=== PATIENT | male | born 1960 | race Caucasian/White ===

== ENCOUNTER 2017-04-28 16:55 | Observation (INO) ==
[2017-04-28] MEDS ORDERED: ASPIRIN PO STA (17:30)
[2017-04-28 17:40] LABS: MANUAL DIFF NEEDED? NO
[2017-04-28 17:45] LABS: BASO% 0.6 % (0.0-0.8); EOS# 0.12 X1000 (0.0-0.7); EOS% 1.2 % (0.0-10.0); HEMATOCRIT 44.2 % (42.0-52.0); HEMOGLOBIN 15.2 g/dL (14.0-18.0); LYMPH# 2.65 X1000 (1.2-3.4); LYMPH% 26.5 % (20.5-51.1); MCH 31.7 PG (27-31); MCHC 34.4 g/dL (33-37); MCV 92.1 FL (81-99); MONO# 0.65 X1000 (0.11-0.59); MONO% 6.5 % (1.7-9.3); MPV 10.7 FL (7.4-10.4); NEUT% 65.2 % (42.2-75.2); PLT 200 X1000 (130-400)
[2017-04-28 17:54] LABS: INR 1.03; PROTIME 10.8 Seconds (9.2-11.7); PTT 28.2 Seconds (22.0-36.0)
[2017-04-28 17:58] LABS: AGAP 13; ALBUMIN 3.8 g/dL (3.5-5.0); ALKALINE PHOSPHATASE 57 U/L (32-122); BUN 10 mg/dL (8-22); CALCIUM 8.4 mg/dL (8.8-10.2); CHLORIDE 103 mmol/L (98-107); COSMO 282; GOT 16 U/L (10-34); GPT 12 U/L (10-44); MAGNESIUM 1.6 mg/dL (1.5-2.7); POTASSIUM 3.2 mmol/L (3.5-5.1); SODIUM 141 mmol/L (136-145); TCO2 25 mmol/L (25-35); TOTAL PROTEIN 6.4 g/dL (6.3-8.3)
[2017-04-28 18:04] LABS: CK PROFILE 319 U/L (24-204)
--- NOTE | 2017-04-28 18:04 | Diag Imaging Result Doc PS360 ---
EXAM: CHEST-2 VIEWS HISTORY: CP TECHNIQUE: PA and lateral chest, four views COMMENT: There is no evidence of acute cardiac or pulmonary disease. There is a granuloma present in the superior segment of the left lower lobe. IMPRESSION: No acute disease. Electronically signed by Ryan Mercado 04/28/2017 6:02 PM
[2017-04-28 18:20] LABS: CK INDEX 2.8 (0.0-2.5); CK-MB 9.04 ng/mL (0.0-5.0)
--- NOTE | 2017-04-28 19:46 | PROVIDER DOCUMENTATION ---
This chart was entered by Annette Lopez Scribe, acting as scribe for Marcos Pereyra MD. HPI-Chest Pain - General Chief Complaint: Chest Pain Stated Complaint: cp Time Seen by Provider: 04/28/17 19:13 Source: patient Allergies/Adverse Reactions: Patient Allergies Allergy/AdvReac Type Severity Reaction Status Date / Time No Known Allergies Allergy Verified 04/28/17 17:30 Home Medications: Home Medication List Medication Instructions Recorded Confirmed Last Taken Type Amlodipine Besylate [Amlodipine 1 tab PO DAILY 04/28/17 04/28/17 04/28/17 History Besylate] Celecoxib [Celecoxib] 1 cap PO DAILY 04/28/17 04/28/17 04/28/17 History Clopidogrel Bisulfate [Clopidogrel] 1 tab PO DAILY 04/28/17 04/28/17 04/28/17 History Hydrocodone/Acetaminophen [Arthur 1 each PO DAILY 04/28/17 04/28/17 04/28/17 History 10-325 Tablet] Metoprolol Succinate [Metoprolol 1 tab PO DAILY 04/28/17 04/28/17 04/28/17 History Succinate] Pantoprazole Sodium [Pantoprazole 1 tab PO DAILY 04/28/17 04/28/17 04/28/17 History Sodium] Prednisone [Prednisone] 1 tab PO DAILY 04/28/17 04/28/17 04/28/17 History Tamsulosin HCl [Tamsulosin HCl] 1 tab PO DAILY 04/28/17 04/28/17 04/28/17 History Triamcinolone Acetonide 1 applicatn TOP DAILY 04/28/17 04/28/17 04/28/17 History [Triamcinolone Acetonide] - History of Present Illness-CP Nature of Presenting Problem: Pt is a 57 year old male who came to the ED with a cc of having sharp chest pain and right arm pain. The pt reports that he has been having chest pain for a week but today was the worst it has been. Pt reports that he smokes over a pack a day. Review of Systems - Adult - REVIEW OF SYSTEMS - ADULT Constitutional: denies: chills, fever Eyes: reports: no symptoms reported Ears, Nose, Mouth & Throat: reports: no symptoms reported Cardiovascular: reports: chest pain. denies: heart murmur, orthopnea Respiratory: reports: shortness of breath. denies: cough, hemoptysis, wheezing Gastrointestinal: denies: diarrhea, nausea, vomiting Genitourinary: reports: no symptoms reported Musculoskeletal: reports: other (right arm pain). denies: frequent leg cramps, joint swelling Integumentary: reports: no symptoms reported Neurological: reports: no symptoms reported Psychiatric: reports: no symptoms reported Endocrine: reports: no symptoms reported Hematologic/Lymphatic: reports: no symptoms reported Allergic/Immunologic: reports: no symptoms reported All Other Systems: Reviewed and Negative Past History - Adult - PAST MEDICAL HISTORY-ADULT Review of Records: reports: Nursing Assessment Review, Medications Reviewed Cardiovascular: reports: cardiac disease, HTN Respiratory: reports: COPD Gastrointestinal: reports: denies history Genitourinary: reports: denies history Musculoskeletal: reports: denies history Neurological: denies: cognitive dysfunction Endocrine/Immune: reports: denies history - IMMUNIZATION STATUS Childhood Immunizations: See Nurse Assessment Flu Vaccine: See Nurse Assessment - FAMILY HISTORY Family History: cancer - SOCIAL HISTORY Smoking: cigarettes, greater than 1 pack/day Provider spent 3-5 mins advising pt. on dangers of tobacco.: Discussed manners to quit use, and f/u contacts for add'l counseling. Physical Exam-General - PHYSICAL EXAM-ADULT Initial Vital Signs Reviewed: Yes - CONSTITUTIONAL General Appearance: alert, no apparent distress - EYES Eyes: PERRL/EOMI, pink conjunctivae - HEAD, EARS, NOSE, MOUTH & THROAT HENMT: normocephalic/atraumatic, moist mucous membranes, normal ENT inspection - NECK Neck: supple, normal inspection - RESPIRATORY Respiratory: chest non-tender, normal breath sounds, wheezing - CARDIOVASCULAR Cardiovascular: normal peripheral pulses, regular rate, rhythm, no edema - GASTROINTESTINAL (ABDOMEN) Abdominal Exam: normal bowel sounds, non tender, soft - LYMPHATIC Lymphatic: no adenopathy - MUSCULOSKELETAL Back Exam: normal inspection, no CVA tenderness, no vertebral tenderness Extremity: normal range of motion, non-tender - SKIN Integumentary: normal color, normal turgor, warm/dry - NEUROLOGIC Neurologic: grossly normal, no motor/sensory deficits - PSYCHIATRIC Psych/Mental Status: normal mood/affect, normal thought content, normal thought process, oriented x 3 Progress - PLAN OF CARE/RESULTS Progress/Plan/Lab Results: Vital Signs - 8 hr 04/28/17 17:05 04/28/17 19:21 Temperature 98.5 F Pulse Rate 67 72 Respiratory Rate 18 18 Blood Pressure 129/75 130/84 O2 Sat by Pulse Oximetry 100 98 Laboratory Results - last 24 hr 04/28/17 04/28/17 04/28/17 17:24 17:24 17:24 WBC 10.01 RBC 4.80 Hgb 15.2 Hct 44.2 MCV 92.1 MCH 31.7 H MCHC 34.4 RDW Std Deviation 13.4 Plt Count 200 MPV 10.7 H Immature Gran % (Auto) 0.0 Neut % (Auto) 65.2 Lymph % (Auto) 26.5 [place] % (Auto) 6.5 Eos % (Auto) 1.2 Baso % (Auto) 0.6 Immature Gran # (Auto) 0.00 Neut # (Auto) 6.53 H Lymph # (Auto) 2.65 [place] # (Auto) 0.65 H Eos # (Auto) 0.12 Baso # (Auto) 0.06 PT INR PTT (Actin FS) D-Dimer 0.30 Sodium 141 Potassium 3.2 L Chloride 103 Carbon Dioxide 25 Anion Gap 13 BUN 10 Creatinine 0.9 Estimated GFR/1.73 m2 > 60 BUN/Creatinine Ratio 11 Glucose 133 H Calculated Osmolality 282 Calcium 8.4 L Magnesium 1.6 Total Bilirubin 0.60 AST 16 ALT 12 Alkaline Phosphatase 57 Creatine Kinase 319 H Creatine Kinase Index 2.8 H CK-MB (CK-2) 9.04 H Troponin T Edr-T-Bsddsweomhn Pept Total Protein 6.4 Albumin 3.8 Globulin 2.6 Albumin/Globulin Ratio 1.5 04/28/17 04/28/17 04/28/17 17:24 17:24 17:24 WBC RBC Hgb Hct MCV MCH MCHC RDW Std Deviation Plt Count MPV Immature Gran % (Auto) Neut % (Auto) Lymph % (Auto) [place] % (Auto) Eos % (Auto) Baso % (Auto) Immature Gran # (Auto) Neut # (Auto) Lymph # (Auto) [place] # (Auto) Eos # (Auto) Baso # (Auto) PT 10.8 INR 1.03 PTT (Actin FS) 28.2 D-Dimer Sodium Potassium Chloride Carbon Dioxide Anion Gap BUN Creatinine Estimated GFR/1.73 m2 BUN/Creatinine Ratio Glucose Calculated Osmolality Calcium Magnesium Total Bilirubin AST ALT Alkaline Phosphatase Creatine Kinase Creatine Kinase Index CK-MB (CK-2) Troponin T < 0.010 [id number]-[id number]-[id number] Pept 191 H Total Protein Albumin Globulin Albumin/Globulin Ratio Orders Category Date Time Status Cardiac Monitoring DIRECTED Care 04/28/17 17:31 Active Oxygen Therapy- ED Nursing DIRECTED Care 04/28/17 17:31 Active Saline Loc NOW Care 04/28/17 17:31 Active CHEST-2 VIEWS [RAD] Stat Exams 04/28/17 17:31 Completed CBC WITH ELECTRONIC DIFF [HEME] Stat Lab 04/28/17 17:24 Completed CK PROFILE [SP CHEM] Stat Lab 04/28/17 17:24 Completed COMPREHENSIVE METABOLIC PANEL [CHEM] Stat Lab 04/28/17 17:24 Completed D-DIMER [CHEM] Stat Lab 04/28/17 17:24 Completed MAGNESIUM [CHEM] Stat Lab 04/28/17 17:24 Completed PRO B-NATRIURETIC PEPTIDE Stat Lab 04/28/17 17:24 Completed PROTIME WITH INR [COAG] Stat Lab 04/28/17 17:24 Completed PTT [COAG] Stat Lab 04/28/17 17:24 Completed TROPONIN T Stat Lab 04/28/17 17:24 Completed Aspirin Med 04/28/17 17:30 Discontinued 325 mg PO STAT STA Result Diagrams: 04/28/17 17:24 04/28/17 17:24 Departure - Departure Date of Disposition Decision: 04/28/17 Time of Disposition Decision: 19:45 DIAGNOSIS: Ischemic heart disease Disposition: ADMITTED INPATIENT 09 Certified Medical Emergency: Emergent Condition: Fair Referrals and Follow-Ups: Toni Chavez MD [Primary Care Provider] - - Critical Care Note This patient required my direct & personal management of CC.: No This chart was documented by the indicated scribe, (Annette Lopez Scribe) and accurately reflects the services I performed and decisions made by me, Marcos Pereyra MD, as attested by the provider's signature.
[2017-04-28] MEDS ORDERED: NITROGLYCERIN SL PRN (21:36)
[2017-04-28] MEDS ORDERED: ZOFRAN IV PRN (21:36)
[2017-04-28] MEDS ORDERED: KLOR-CON PO ONE (21:36)
[2017-04-28] MEDS ORDERED: LOVENOX SUBQ SCH (21:36)
[2017-04-28] MEDS ORDERED: MORPHINE IV PRN (21:36)
[2017-04-28] MEDS ORDERED: TYLENOL PO PRN (21:36)
[2017-04-28 22:54] LABS: CK INDEX 2.6 (0.0-2.5); CK-MB 8.34 ng/mL (0.0-5.0)
[2017-04-28] MEDS ORDERED: NORVASC PO SCH (23:00)
[2017-04-28] MEDS ORDERED: NORCO-10 PO PRN (23:19)
[2017-04-28] MEDS: PLAVIX PO SCH (23:33)
[2017-04-28] MEDS: FLOMAX PO SCH (23:33)
[2017-04-28] MEDS: PROTONIX PO SCH (23:33)
[2017-04-28] MEDS: ASPIRIN PO SCH (23:33)
[2017-04-28] MEDS: TOPROL XL PO SCH (23:33)
[2017-04-29 05:53] LABS: MANUAL DIFF NEEDED? NO
[2017-04-29 05:55] LABS: BASO% 0.5 % (0.0-0.8); EOS# 0.13 X1000 (0.0-0.7); EOS% 1.7 % (0.0-10.0); HEMATOCRIT 46.1 % (42.0-52.0); HEMOGLOBIN 16.1 g/dL (14.0-18.0); LYMPH# 2.14 X1000 (1.2-3.4); LYMPH% 27.8 % (20.5-51.1); MCH 31.8 PG (27-31); MCHC 34.9 g/dL (33-37); MCV 91.1 FL (81-99); MONO# 0.52 X1000 (0.11-0.59); MONO% 6.7 % (1.7-9.3); MPV 10.8 FL (7.4-10.4); NEUT% 63.3 % (42.2-75.2); PLT 198 X1000 (130-400); RBC 5.06 XMIL (4.7-6.1)
[2017-04-29 06:14] LABS: AGAP 10; BUN 8 mg/dL (8-22); CALCIUM 8.7 mg/dL (8.8-10.2); CHLORIDE 105 mmol/L (98-107); COSMO 282; POTASSIUM 3.8 mmol/L (3.5-5.1); SODIUM 142 mmol/L (136-145); TCO2 27 mmol/L (25-35)
[2017-04-29 06:44] LABS: CK INDEX 2.9 (0.0-2.5); CK-MB 8.42 ng/mL (0.0-5.0)
--- NOTE | 2017-04-29 07:07 | EKG Report ---
Test Performed on : 04/28/2017 10:49:09 PM Test Reason : CP Blood Pressure : / mmHG Vent. Rate : 066 BPM Atrial Rate : 066 BPM P-R Int : 158 ms QRS Dur : 108 ms QT Int : 420 ms P-R-T Axes : 047 -68 011 degrees QTc Int : 440 ms Normal sinus rhythm. Left axis deviation Abnormal ECG When compared with ECG of 28-APR-2017 16:52, (Unconfirmed) No significant change was found Confirmed by Olga Arreaga MD ([id number]) on 04/29/2017 1:10:03 PM
[2017-04-29] MEDS ORDERED: NORCO-10 PO SCH (09:00)
[2017-04-29] MEDS ORDERED: PREDNISONE PO SCH (09:00)
[2017-04-29] MEDS ORDERED: KENALOG 0.1% CREAM TOP SCH (09:00)
[2017-04-29 11:15] VITALS: BP 141/88
[2017-04-29] MEDS: ASPIRIN PO SCH (11:23)
[2017-04-29] MEDS: PLAVIX PO SCH (11:24)
[2017-04-29] MEDS: TOPROL XL PO SCH (11:24)
[2017-04-29] MEDS: PROTONIX PO SCH (11:24)
[2017-04-29] MEDS: FLOMAX PO SCH (11:24)
--- NOTE | 2017-04-29 15:02 | EKG Report ---
Test Performed on : 04/28/2017 4:52:14 PM Test Reason : ED. Not ordered in [place] Blood Pressure : / mmHG Vent. Rate : 068 BPM Atrial Rate : 068 BPM P-R Int : 156 ms QRS Dur : 106 ms QT Int : 398 ms P-R-T Axes : -02 -38 010 degrees QTc Int : 423 ms Normal sinus rhythm. Left axis deviation Cannot rule out Anterior infarct , age undetermined Abnormal ECG No previous ECGs available Unconfirmed Result
--- NOTE | 2017-04-29 19:25 | ECHO REPORT ---
ORDER DATE: 04/29/2017 ECHOCARDIOGRAM: MEASUREMENTS: Left ventricular end-diastolic diameter 5.5, end systolic diameter 3.6, posterior wall thickness 1.1, septal thickness 1.1, left atrium 3.9, aortic root 3.4. SUMMARY: 1. Fair quality study. 2. Aortic valve is trileaflet and opens normally on 2-dimensional images. Mitral, tricuspid, and pulmonic valves are without structural abnormality with trace mitral regurgitation, trace tricuspid regurgitation, and trace pulmonic insufficiency. Aortic root is normal in size. 3. Normal left ventricular dimensions suggested. Estimated left ventricular ejection fraction appears to be at least 65%. No regional wall motion abnormalities are evident. Doppler suggests normal left ventricular diastolic function. Left atrium, right atrium, and right ventricle are normal in size with normal right ventricular systolic function. 4. No pericardial effusion. 5. Appearance of inferior vena cava suggests normal central venous pressure. 6. Sinus rhythm during study. cc: MD Rosendo Kamara CRNP
--- NOTE | 2017-04-29 23:57 | DISCHARGE SUMMARY ---
ADMISSION DATE: 04/28/2017 DISCHARGE DATE: 04/29/2017 DISCHARGE DIAGNOSES: 1. Acute coronary syndrome, this patient will be transferred to [facility] for treatment. 2. History of coronary artery disease status post a stent placement. 3. Hypertension. 4. BPH. 5. Tobacco abuse. CONSULTATIONS: Dr. Baer from Cardiology department. HOSPITAL COURSE: A 57-year-old male with a past medical history of coronary disease status post a stent placement, tobacco abuse of 2 packs per day for 30 years, hypertension, BPH. Came to the emergency department, was admitted on 04/28/2017 with a chief complaint of chest pain that has been going on for the past 2 weeks. As per the patient, the chest pain is sometimes sharp and sometimes pressure like, radiated to the right arm. We did a lab work that showed increase of CK-MB. Cardiology Department evaluated this patient and they decided to send this patient to [facility] because this patient needs to be evaluated and needs a cardiac catheterization to rule out any problem with the stent or coronaries. This decision was discussed with the family and they agree with that as well. So the patient will be transferred to [facility] for treatment. PHYSICAL EXAMINATION: Vital signs: Temperature 98.3 degrees, pulse 64, respiratory rate 15, blood pressure 141/88, O2 saturation 98 on room air. HEENT: Head normocephalic. No trauma. PERRLA. Neck: Supple. No JVD. No masses. Central trachea. Chest: Clear to auscultation. No wheezing. No rales. Abdomen: Soft, nontender, nondistended. No hepatosplenomegaly. Cardiovascular: RRR, no murmurs. Extremities: No edema. No clubbing. No cyanosis. Neurological: The patient is alert and oriented x3. No focal deficits. LABORATORY: CBC: WBC 7.7, hemoglobin 16.1, hematocrit 46.1, platelets 198,000. Chem: Sodium 142, potassium 3.8, chloride 105, bicarbonate 27, BUN 8, creatinine 0.7, glucose 103, calcium 8.7. Cardiac: CK 290, CK-MB 8.42. Troponins: Negative x3. Lipids: Triglyceride 186, cholesterol 135, LDL 89, HDL 29. DISPOSITION: Cardiology department evaluated this patient today, they made arrangements to send this patient to part to [facility] for a cardiac catheterization. cc: Leandro Tran MD
--- NOTE | 2017-05-02 03:44 | HISTORY AND PHYSICAL ---
PRIMARY CARE PHYSICIAN: Toni Chavez MD. CHIEF COMPLAINT: Chest pain x1 week. HISTORY OF PRESENTING ILLNESS: This is a 57-year-old male with a history of hypertension, coronary artery disease, hyperlipidemia and tobacco abuse. He had presented to the emergency department with a 1-week history of having intermittent chest pain. He described it as an ache, then it became sharp, and now it is pressure-like. He states it is intermittent. He is having some mild shortness of breath and does not feel well. Subsequently, had come to the emergency department. In the ER, he was evaluated. He was having some persistent chest discomfort, and subsequently it was thought that he would need hospitalization for further management. At the time of my examination, he denied any headache, fever, chills, nausea, vomiting, diarrhea, hemoptysis, melena, weight changes, but complained of chest discomfort. PAST MEDICAL HISTORY: Hypertension, coronary artery disease, hyperlipidemia. PAST SURGICAL HISTORY: Coronary stent, right knee surgery, cervical fusion, bilateral carpal tunnel release. ALLERGIES: No known drug allergies. CURRENT MEDICATIONS: As listed in the medication reconciliation sheet. SOCIAL HISTORY: Sixty pack years history of smoking. Denies any history of alcohol or illicit drug use. FAMILY HISTORY: No history of coronary artery disease. REVIEW OF SYSTEMS: Twelve point review of systems listed as in the HPI. Other systems negative. PHYSICAL EXAMINATION: GENERAL: Cooperative, friendly male. He is resting comfortably now. VITAL SIGNS: Temperature 98.5 degrees, pulse 67, respiration 18, blood pressure 129/75. He is saturating 100% on room air. HEENT: Atraumatic, normocephalic. Extraocular movements intact. PERRLA. NECK: Supple. CHEST: Clear auscultation. CARDIOVASCULAR: Regular rate and rhythm. ABDOMEN: Soft, obese. Positive bowel sounds. EXTREMITIES: No edema. NEUROLOGIC: He is awake, alert, oriented x3. GENITOURINARY: No bladder distention. SKIN: Good pallor. LABORATORIES AND STUDIES: WBC 10.01, hemoglobin 15.2, hematocrit 44.2, platelets 200,000. Troponin is 0.10. Sodium 141, potassium 3.2, chloride 103, CO2 of 25, BUN is 10, creatinine 0.9, glucose is 133. ASSESSMENT: A 57-year-old male with a history of hypertension, coronary artery disease, hyperlipidemia, and tobacco abuse, who presented to the emergency department with a 1-week history of having intermittent chest pain. We will place patient for observation for further evaluation and management. 1. Chest pain. 2. Hypertension. 3. Coronary artery disease. 4. Hyperlipidemia. 5. Ongoing tobacco abuse. 6. Mild hypokalemia. PLAN: 1. We will admit patient to medical floor with telemetry. 2. Continue cardiac workup. Check EKG, serial cardiac enzymes. Have patient continue on aspirin. We will use sublingual nitroglycerin, morphine p.r.n. chest pain. 3. 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 4. Check echocardiogram. 5. We will monitor blood pressure closely and resume antihypertensive agent. 6. Restart his statin. 7. We will optimize his electrolytes. 8. We will put patient on DVT prophylaxis with SCDs. 9. We will continue to follow and reassess. cc: Malcolm Holliday MD
== END 2017-04-29 13:14 | disposition short-term general hospital (02) ==
LOC: ED 16:55 → 4N 21:29 → INTOOBSV 21:29 → SUATTDRO 21:29
PROVIDERS: ATTEND Internal Medicine